=== PATIENT | male | born 1970 | race Caucasian/White ===

== ENCOUNTER → 2023-12-07 06:22 | Day surgery (SDC) | payer OTHER, SELFPAY | LOC: GI 06:22 | PROVIDERS: ATTENDING PHYSICIAN Surgery | DX: Z12.11 Encounter for screening for malignant neoplasm of colon (principal); Z85.038 Personal history of other malignant neoplasm of large intestine; D49.0 Neoplasm of unspecified behavior of digestive system; K63.89 Other specified diseases of intestine; D12.3 Benign neoplasm of transverse colon; D12.7 Benign neoplasm of rectosigmoid junction; D12.8 Benign neoplasm of rectum; K63.5 Polyp of colon | CPT/HCPCS: 45385; 88305 ==